=== PATIENT | male | born 1990 | race African-American/Black ===

== ENCOUNTER 2021-10-01 00:43 | Emergency (ER) | payer MEDICAID ==
[~2021-10-01] VITALS: Ht 188 cm; Wt 97.7 kg
[2021-10-01 01:08] VITALS: BP 124/76
[2021-10-01] MEDS ORDERED: KETOROLAC TROMETH 60MG/2ML VIAL IM ONE (05:00)
[2021-10-01] MEDS ORDERED: HYDR-4902 PO (05:12)
[2021-10-01] MEDS ORDERED: ONDA-144 PO (05:12)
== END 2021-10-01 05:19 | disposition home or self-care (01) ==
LOC: ER 00:43
DX: S62.665A Nondisplaced fracture of distal phalanx of left ring finger, initial encounter for closed fracture (principal); J45.909 Unspecified asthma, uncomplicated; Z88.0 Allergy status to penicillin; W18.39XA Other fall on same level, initial encounter; Y93.89 Activity, other specified; Y92.89 Other specified places as the place of occurrence of the external cause; Y99.8 Other external cause status
CPT/HCPCS: 73120; 96372; 99283; J1885